=== PATIENT | male | born 1955 | race Caucasian/White ===

== ENCOUNTER → 2020-03-07 | Outpatient (REF) | payer BC, MEDICARE | LOC: M LAB REF 16:30 | PROVIDERS: ATTEND Nurse Practitioner Adult Health | DX: E03.9 Hypothyroidism, unspecified (principal) ==

== ENCOUNTER → 2022-02-18 | Outpatient (REF) | payer MEDICARE | LOC: M LAB REF 16:22 | PROVIDERS: ATTEND Internal Medicine | DX: M15.9 Polyosteoarthritis, unspecified (principal) ==